=== PATIENT | female | born 1995 | race Caucasian/White ===

== ENCOUNTER 2017-03-28 12:08 | Emergency (ER) | payer SELFPAY ==
[~2017-03-28] VITALS: Ht 170.2 cm; Wt 75.7 kg
[2017-03-28 12:17] VITALS: Ht 170.2 cm; Wt 75.7 kg
== END 2017-03-28 14:01 | disposition left against medical advice (07) ==
LOC: FTE 12:08
DX: Z53.21 Procedure and treatment not carried out due to patient leaving prior to being seen by health care provider (principal)